=== PATIENT | female | born 1980 | race Caucasian/White ===

== ENCOUNTER 2016-11-03 13:22 | Emergency (ER) | payer SELFPAY | END 2016-11-03 13:30 | disposition home or self-care (01) | LOC: ER 13:22 | DX: M54.5 Low back pain (principal); F17.200 Nicotine dependence, unspecified, uncomplicated; Z98.51 Tubal ligation status; Z88.0 Allergy status to penicillin | CPT/HCPCS: 96372; 99283; A9270-GY; J1885 ==

== ENCOUNTER 2017-01-19 09:07 | Emergency (ER) | payer SELFPAY | END 2017-01-19 09:15 | disposition home or self-care (01) | LOC: ER 09:07 | DX: R51 Headache (principal); Z88.0 Allergy status to penicillin | CPT/HCPCS: 96372; 99284; J1200; J1885; J2550 ==